=== PATIENT | male | born 1965 | race Caucasian/White ===

== ENCOUNTER 2017-01-19 07:59 | Inpatient (IN) | payer BC ==
[2017-01-19] VITALS (733 sets, daily range): BP systolic 86–152; BP diastolic 56–100; PULSE 46–64; TEMP 97–98.7; O2SAT 91–100
[~2017-01-19] VITALS: Ht 172.7 cm; Wt 87.1 kg
[~2017-01-19 07:59] MED LIST: ASPIRIN 81M81 MG/TA2 PO; EFFIENT10 MG PO; LIPITOR 80MG80 MG PO; LOPRESSOR 225 MG/TAB PO; MULTI VITAMINS1 TAB PO; NITROSTAT0.4 MG/TAB SL; NORVASC 5MG5 MG/TAB PO; RANEXA 500MG T500 MG PO; TOPROL XL 50MG50 MG PO; XANAX 1MG1 MG PO; ZANTAC 150150 MG
[2017-01-19 08:48] LABS: BASO # 0.1 (0.0-0.2); BASO % 0.8 % (0.0-2.0); EOS # 0.2 (0.0-0.7); EOS % 2.1 % (0-4.0); GRAN # 6.3 (1.4-6.5); GRAN % 64.1 % (42.2-75.2); HEMATOCRIT 48.2 % (42.0-52.0); HEMOGLOBIN 16.3 g/dl (13.5-18.0); LYMPH # 2.3 (1.2-3.4); LYMPH % 23.1 % (20.0-51.0); MEAN CELL VOLUME 93 fl (80.0-100.0); MEAN CORPUSCULAR HEMOGLOBIN 32 pg (27.0-31.0); MEAN CORPUSCULAR HGB CONC 34 g/dl (33.0-37.0); MEAN PLATELET VOLUME 9.3 fl (7.4-10.4); MONO # 0.9 (0.1-0.6); MONO % 9.5 % (1.7-9.3); PARTIAL THROMBOPLASTIN TIME 31.8 SECONDS (26.0-37.0); PLATELET COUNT 205 K/mm3 (130-400); RED BLOOD COUNT 5.18 M/mm3 (4.20-5.60); WHITE BLOOD COUNT 9.8 K/mm3 (4.8-10.8)
[2017-01-19 08:54] LABS: ADJUSTED CALCIUM 8.9 mg/dL (8.4-10.2); ALBUMIN 4.1 gm/dL (3.5-5.0); BILIRUBIN,TOTAL 0.6 mg/dL (0.0-1.0); CREATININE, serum 0.89 mg/dL (0.66-1.25); TOTAL PROTEIN 7.4 gm/dL (6.4-8.2)
[2017-01-19 08:56] LABS: PROTHROMBIN TIME 10.6 SECONDS (9.7-12.8)
[2017-01-19 09:08] LABS: TROPONIN-I 0.636 ng/mL (0.000-0.034)
[2017-01-19] MEDS ORDERED: PLAVIX 75MG TAB75 MG PO (10:44)
[2017-01-19] MEDS ORDERED: NITROSTAT0.4 MG/TAB SL (11:20)
[2017-01-19] MEDS ORDERED: LIPITOR 80MG80 MG PO (11:20)
[2017-01-19 22:50] LABS: PARTIAL THROMBOPLASTIN TIME 34.2 SECONDS (26.0-37.0)
== END 2017-01-19 23:33 | disposition short-term general hospital (02) | DRG 282 ==
LOC: COL.ER 07:59 → ICU 09:24
PROVIDERS: Emergency Medicine; Nurse Practitioner Family
DX: I21.4 Non-ST elevation (NSTEMI) myocardial infarction (principal); I10 Essential (primary) hypertension; E78.5 Hyperlipidemia, unspecified; F17.210 Nicotine dependence, cigarettes, uncomplicated; E78.1 Pure hyperglyceridemia; Z95.5 Presence of coronary angioplasty implant and graft
CPT/HCPCS: 99223-AI; J1327; J1644; J1650; J2270; J2405; J2765; J7030

== ENCOUNTER 2017-01-27 15:45 | Outpatient (RCR) | payer BC ==
[~2017-01-27 15:45] MED LIST changes: +PLAVIX 75MG TAB75 MG PO
== END 2017-02-20 15:00 | disposition still patient (30) ==
LOC: COL.CR 15:45
DX: I21.4 Non-ST elevation (NSTEMI) myocardial infarction (principal); Z95.5 Presence of coronary angioplasty implant and graft

== ENCOUNTER 2017-07-29 09:02 | Inpatient (IN) | payer BC ==
[2017-07-29] VITALS (570 sets, daily range): BP systolic 126–133; BP diastolic 73–82; PULSE 54–57; TEMP 97.8–98.4; O2SAT 91–100
[~2017-07-29] VITALS: Ht 170.2 cm; Wt 89.3 kg
[2017-07-29 10:17] LABS: BASO # 0.1 (0.0-0.2); BASO % 0.7 % (0.0-2.0); EOS # 0.1 (0.0-0.7); EOS % 1.8 % (0-4.0); HEMATOCRIT 43.7 % (42.0-52.0); HEMOGLOBIN 14.7 g/dl (13.5-18.0); LYMPH # 1.5 (1.2-3.4); LYMPH % 20.5 % (20.0-51.0); MEAN CELL VOLUME 88 fl (80.0-100.0); MEAN CORPUSCULAR HEMOGLOBIN 30 pg (27.0-31.0); MEAN CORPUSCULAR HGB CONC 34 g/dl (33.0-37.0); MEAN PLATELET VOLUME 9.1 fl (7.4-10.4); MONO # 0.7 (0.1-0.6); MONO % 9.7 % (1.7-9.3); PLATELET COUNT 188 K/mm3 (130-400); RED BLOOD COUNT 4.99 M/mm3 (4.20-5.60); REDCELL DISTRIBUTION WIDTH-CV 14.6 % (11.5-14.5)
[2017-07-29 10:21] LABS: PROTHROMBIN TIME 11.3 SECONDS (9.7-12.8)
[2017-07-29 10:24] LABS: PARTIAL THROMBOPLASTIN TIME 34.3 SECONDS (26.0-37.0)
[2017-07-29 10:32] LABS: ALANINE AMINOTRANSFERASE 58 U/L (21-72); ALBUMIN 3.8 gm/dL (3.5-5.0); ALKALINE PHOSPHATASE 163 U/L (50-136); ANION GAP 14 mmol/L (7-16); AST,SGOT 32 U/L (15-37); BILIRUBIN,TOTAL 0.6 mg/dL (0.0-1.0); BLOOD UREA NITROGEN 16 mg/dL (9-20); CALCIUM 9.2 mg/dL (8.4-10.2); CARBON DIOXIDE 25 mmol/L (22-30); CHLORIDE 105 mmol/L (98-107); CREATININE, serum 0.72 mg/dL (0.66-1.25); GLUCOSE 129 mg/dL (74-106); POTASSIUM 4.2 mmol/L (3.4-5.0); SODIUM 145 mmol/L (137-145); TOTAL PROTEIN 7.3 gm/dL (6.4-8.2)
[2017-07-29 10:42] LABS: TROPONIN-I < 0.012 ng/mL (0.000-0.034)
[2017-07-30] VITALS (750 sets, daily range): BP systolic 100–141; BP diastolic 60–78; PULSE 54–66; TEMP 97.9–98.4; O2SAT 85–99
[2017-07-30 06:34] LABS: BASO % 0.4 % (0.0-2.0); EOS # 0.2 (0.0-0.7); GRAN # 5.1 (1.4-6.5); GRAN % 63.6 % (42.2-75.2); HEMATOCRIT 43.9 % (42.0-52.0); HEMOGLOBIN 14.6 g/dl (13.5-18.0); LYMPH # 1.9 (1.2-3.4); LYMPH % 24.2 % (20.0-51.0); MEAN CELL VOLUME 88 fl (80.0-100.0); MEAN CORPUSCULAR HEMOGLOBIN 29 pg (27.0-31.0); MEAN CORPUSCULAR HGB CONC 33 g/dl (33.0-37.0); MEAN PLATELET VOLUME 9.3 fl (7.4-10.4); MONO # 0.8 (0.1-0.6); MONO % 9.4 % (1.7-9.3); PLATELET COUNT 190 K/mm3 (130-400)
[2017-07-30 06:46] LABS: CREATININE, serum 0.73 mg/dL (0.66-1.25)
[2017-07-31] VITALS (9 sets, daily range): BP systolic 95–126; BP diastolic 59–76; PULSE 53–76; TEMP 97.6–98.2
[2017-07-31 06:10] LABS: CALCIUM 8.9 mg/dL (8.4-10.2); CREATININE, serum 0.8 mg/dL (0.66-1.25); POTASSIUM 4.2 mmol/L (3.4-5.0)
== END 2017-07-31 15:55 | disposition home or self-care (01) | DRG 313 ==
LOC: COL.ER 09:02 → ICU 12:14 → MEDICAL 07-30 16:13
PROVIDERS: Emergency Medicine; Internal Medicine; Nurse Practitioner Family
DX: R07.9 Chest pain, unspecified (principal); R42 Dizziness and giddiness; R20.0 Anesthesia of skin; I25.10 Atherosclerotic heart disease of native coronary artery without angina pectoris; Z95.5 Presence of coronary angioplasty implant and graft; I10 Essential (primary) hypertension; Z87.891 Personal history of nicotine dependence
CPT/HCPCS: 99223-AI; 99232-AI; 99239; A9502; J1650; J2785; J7030

== ENCOUNTER 2018-06-12 08:23 | Emergency (ER) | payer BC ==
[~2018-06-12] VITALS: Ht 170.2 cm; Wt 86.4 kg
[~2018-06-12 08:23] MED LIST changes: +IMDUR 30MG30 MG/TAB PO
[2018-06-12 08:29] VITALS: TEMP 97.8
[2018-06-12 08:40] LABS: BASO # 0.1 (0.0-0.2); BASO % 0.8 % (0.0-2.0); EOS # 0.2 (0.0-0.7); EOS % 2.5 % (0-4.0); GRAN # 4.6 (1.4-6.5); GRAN % 60.8 % (42.2-75.2); HEMATOCRIT 43.2 % (42.0-52.0); HEMOGLOBIN 14.7 g/dl (13.5-18.0); LYMPH # 1.8 (1.2-3.4); LYMPH % 23.4 % (20.0-51.0); MEAN CELL VOLUME 91 fl (80.0-100.0); MEAN CORPUSCULAR HEMOGLOBIN 31 pg (27.0-31.0); MEAN CORPUSCULAR HGB CONC 34 g/dl (33.0-37.0); MEAN PLATELET VOLUME 9.3 fl (7.4-10.4); MONO # 0.9 (0.1-0.6); MONO % 11.8 % (1.7-9.3); PLATELET COUNT 199 K/mm3 (130-400); RED BLOOD COUNT 4.73 M/mm3 (4.20-5.60); REDCELL DISTRIBUTION WIDTH-CV 14.5 % (11.5-14.5)
[2018-06-12 08:47] LABS: INR 0.9 (0.8-3.0); PROTHROMBIN TIME 10.1 SECONDS (9.7-12.8)
[2018-06-12 09:03] LABS: ALANINE AMINOTRANSFERASE 41 U/L (21-72); ALBUMIN 3.9 gm/dL (3.5-5.0); ALKALINE PHOSPHATASE 156 U/L (50-136); ANION GAP 9 mmol/L (7-16); AST,SGOT 30 U/L (15-37); BILIRUBIN,TOTAL 0.4 mg/dL (0.0-1.0); BLOOD UREA NITROGEN 13 mg/dL (9-20); CARBON DIOXIDE 23 mmol/L (22-30); CHLORIDE 110 mmol/L (98-107); CREATININE, serum 0.73 mg/dL (0.66-1.25); GLUCOSE 142 mg/dL (74-106); LIPASE 112 U/L (23-300); POTASSIUM 3.8 mmol/L (3.4-5.0); SODIUM 141 mmol/L (137-145); TOTAL PROTEIN 7.2 gm/dL (6.4-8.2)
[2018-06-12 09:15] LABS: TROPONIN-I < 0.012 ng/mL (0.000-0.035)
[2018-06-12] MEDS ORDERED: RANEXA 500MG T500 MG PO (10:04)
[2018-06-12 12:53] VITALS: BP 123/75; PULSE 62
== END 2018-06-12 12:55 | disposition home or self-care (01) ==
LOC: COL.ER 08:23
PROVIDERS: Emergency Medicine
DX: R07.89 Other chest pain (principal); K21.9 Gastro-esophageal reflux disease without esophagitis; I25.10 Atherosclerotic heart disease of native coronary artery without angina pectoris; Z87.891 Personal history of nicotine dependence; Z98.890 Other specified postprocedural states; Z95.5 Presence of coronary angioplasty implant and graft
CPT/HCPCS: J2405; J7030